=== PATIENT | female | born 1985 | race Hispanic/Latino ===

== ENCOUNTER 2020-03-11 14:21 | Emergency (ER) | payer MEDICAID, OTHER ==
[2020-03-11] MEDS ORDERED: TETANUS/DIPHTHERIA TOXOID [ADULT] 0.5 ML VIAL IM ONE (14:36)
[2020-03-11] MEDS ORDERED: ACETAMINOPHEN EXTRA STRENGTH 500 MG TABLET ONE (14:53)
== END 2020-03-11 15:34 | disposition home or self-care (01) ==
LOC: EDH 14:21
DX: S81.831A Puncture wound without foreign body, right lower leg, initial encounter (principal); F41.9 Anxiety disorder, unspecified; W54.0XXA Bitten by dog, initial encounter; Y93.89 Activity, other specified; Y92.89 Other specified places as the place of occurrence of the external cause; Y99.8 Other external cause status
CPT/HCPCS: 90471; 90714

== ENCOUNTER 2020-07-30 14:17 | Observation (INO) | payer MEDICAID ==
[~2020-07-30] VITALS: Ht 160 cm; Wt 75.2 kg
[2020-07-30] MEDS ORDERED: ONDANSETRON HCL 4 MG/2 ML VIAL ONE (15:07)
[2020-07-30] MEDS ORDERED: KETOROLAC TROMETHAMINE 30MG/ML ONE (15:07)
[2020-07-30] MEDS ORDERED: SODIUM CHLORIDE 0.9% 1000ML 1,000 ML IV ONE (15:09)
[2020-07-30 15:13] LABS: BASOPHILS % (AUTO) 0.3 % (0.0-5.0); EOSINOPHILS % (AUTO) 0.1 % (0.0-8.0); HEMATOCRIT 40.1 % (36-48); LYMPHOCYTES % (AUTO) 4.4 % (21.0-51.0); MEAN CORPUSCULAR HEMOGLOBIN 30.7 pg (27.0-33.0); MEAN CORPUSCULAR HGB CONC 34.4 g/dL (32.0-36.0); MEAN CORPUSCULAR VOLUME 89.1 fL (79-99); MONOCYTES % (AUTO) 3.4 % (3.0-13.0); NEUTROPHILS % (AUTO) 91.4 % (40.0-77.0); PLATELET COUNT (AUTO) 317 K/uL (130-400); RED CELL DISTRIBUTION WIDTH 12.5 % (11.0-15.5); WHITE BLOOD COUNT (AUTO) 19.4 K/uL (4.8-10.8)
[2020-07-30 15:30] LABS: APPEARANCE,URINE Clear (CLEAR); BILIRUBIN,URINE Negative (NEGATIVE); COLOR,URINE Yellow (YELLOW); GLUCOSE, URINE (UA) Negative (NEGATIVE); KETONES,URINE >=160 mg/dL (NEGATIVE); LEUKOCYTE ESTERASE ,URINE Negative (NEGATIVE); NITRATE,URINE Positive (NEGATIVE); OCCULT BLOOD,URINE Moderate (NEGATIVE); PH,URINE 5.5 (5.0-8.0); PROTEIN,URINE Negative (NEGATIVE); UROBILINOGEN,URINE 0.2 mg/dL (0.2-1.0)
[2020-07-30 15:35] LABS: CREATININE 0.7 mg/dL (0.5-1.5); POTASSIUM 3.5 mmol/L (3.5-5.1)
[2020-07-30 15:37] LABS: BACTERIA,URINE Many /HPF (None Seen); RBC,URINE None Seen /HPF (0-1); SQUAMOUS EPITHELIAL CELL,UR 0-2 /HPF (0-2); WBC,URINE 0-1 /HPF (0-1)
[2020-07-30 15:40] LABS: ALBUMIN 4.2 g/dL (3.5-5.0); BILIRUBIN,TOTAL 0.5 mg/dL (0.2-1.0); TOTAL PROTEIN, SERUM 8.2 g/dL (6.0-8.3)
[2020-07-30] MEDS ORDERED: MORPHINE SULFATE 4 MG/1ML SYG ONE (16:42)
[2020-07-30] MEDS ORDERED: IOHEXOL-350 75 ML VIAL IV ONE (16:46)
[2020-07-30] MEDS ORDERED: ZOSYN 3.375GM+NS 50ML 50 ML IV ONE (18:11)
[2020-07-30] MEDS ORDERED: DIPHENHYDRAMINE HCL 25 MG CAPSULE PO PRN (20:30)
[2020-07-30] MEDS ORDERED: GUAIFENESIN-DM 200/20 MG 10 ML PO PRN (20:30)
[2020-07-30] MEDS: LACTATED RINGERS 1000ML 1,000 ML IV SCH (20:30)
[2020-07-30] MEDS ORDERED: DiphenhydrAMINE HCL 50 MG/ML VIAL IV PRN (20:30)
[2020-07-30] MEDS ORDERED: NITROGLYCERIN 0.4 MG SL TAB SL PRN (20:30)
[2020-07-30] MEDS ORDERED: ONDANSETRON HCL 4 MG/2 ML VIAL IV PRN (20:30)
[2020-07-30] MEDS ORDERED: MAG HYDROX/AL HYDROX/SIMETH ES 30 ML SUSP UDCUP PO PRN (20:30)
[2020-07-30] MEDS ORDERED: ACETAMINOPHEN 325 MG TAB PO PRN ×2 (20:30)
[2020-07-30] MEDS ORDERED: LACTULOSE 20 GM/30 ML UDCUP PO PRN (20:30)
[2020-07-30] MEDS: FAMOTIDINE/PF 20 MG/2 ML VIAL IV SCH (21:00)
[2020-07-30] MEDS: ZOSYN 3.375GM+NS 50ML 50 ML IV SCH (21:00)
[2020-07-30] MEDS ORDERED: LACTATED RINGERS 1000ML 1,000 ML IV ONE (21:17)
[2020-07-30] MEDS ORDERED: FAMOTIDINE/PF 20 MG/2 ML VIAL IV ONE (21:18)
[2020-07-30] MEDS ORDERED: MORPHINE SULFATE 2 MG/ML 1ML SYG ONE (22:58)
[2020-07-30 23:40] VITALS: BP 124/73
[2020-07-30] MEDS ORDERED: SERT-439 PO (23:45)
[2020-07-30] MEDS ORDERED: HYDR-3421 PO (23:45)
[2020-07-31] VITALS (25 sets, daily range): BP systolic 90–126; BP diastolic 49–73
[2020-07-31] MEDS ORDERED: HYDROXYZINE HCL 50 MG/ML VIAL IM PRN
[2020-07-31] MEDS ORDERED: MORPHINE SULFATE 2 MG/ML 1ML SYG ONE (04:13)
[2020-07-31] MEDS: MORPHINE SULFATE 2 MG/ML 1ML SYG IVP PRN ×4 (04:17→18:44)
[2020-07-31] MEDS: ZOSYN 3.375GM+NS 50ML 50 ML IV SCH ×3 (04:17→21:30)
[2020-07-31 05:41] LABS: BASOPHILS % (AUTO) 0.4 % (0.0-5.0); EOSINOPHILS % (AUTO) 0.1 % (0.0-8.0); HEMATOCRIT 34.5 % (36-48); LYMPHOCYTES % (AUTO) 9.6 % (21.0-51.0); MEAN CORPUSCULAR HGB CONC 34.5 g/dL (32.0-36.0); MEAN CORPUSCULAR VOLUME 89.8 fL (79-99); MONOCYTES % (AUTO) 5.3 % (3.0-13.0); NEUTROPHILS % (AUTO) 84.3 % (40.0-77.0); PLATELET COUNT (AUTO) 282 K/uL (130-400); RED BLOOD CELL COUNT(AUTO) 3.84 MIL/uL (4.00-5.50); RED CELL DISTRIBUTION WIDTH 12.8 % (11.0-15.5); WHITE BLOOD COUNT (AUTO) 14.6 K/uL (4.8-10.8)
[2020-07-31 05:56] LABS: ALBUMIN 3.1 g/dL (3.5-5.0); BILIRUBIN,TOTAL 0.7 mg/dL (0.2-1.0); CREATININE 0.7 mg/dL (0.5-1.5); CRP QUANTITATIVE 93.6 mg/L (0.00-9.0); POTASSIUM 3.5 mmol/L (3.5-5.1); TOTAL PROTEIN, SERUM 6.7 g/dL (6.0-8.3)
[2020-07-31] MEDS: LACTATED RINGERS 1000ML 1,000 ML IV SCH ×6 (06:26→21:36)
[2020-07-31] MEDS ORDERED: POTASSIUM CHLORIDE 20MEQ/100ML 100 ML IV PRN (06:45)
[2020-07-31] MEDS ORDERED: LIDOCAINE HCL-MPF 1% 2ML VIAL IV PRN (06:45)
[2020-07-31] MEDS: FAMOTIDINE/PF 20 MG/2 ML VIAL IV SCH ×2 (09:46→21:30)
[2020-07-31] MEDS ORDERED: BUPIVACAINE/PF 0.25% 30ML VIAL IJ ONE (18:45)
[2020-07-31] MEDS ORDERED: LIDOCAINE HCL 1% 20 ML VIAL ONE (18:45)
[2020-07-31] MEDS ORDERED: CEFAZOLIN SODIUM 1 GM VIAL ONE (18:45)
[2020-07-31] MEDS ORDERED: MIDAZOLAM HCL 1 MG/ML 2ML VIAL ONE ×2 (19:15→19:50)
[2020-07-31] MEDS ORDERED: MEPERIDINE-PF 25 MG/ML SYG ONE ×2 (19:15→19:59)
[2020-07-31] MEDS ORDERED: DEXAMETHASONE SOD PHOSPHATE 10MG/ML 1ML VIAL ONE (19:49)
[2020-07-31] MEDS ORDERED: LIDOCAINE PF 2% 5ML ABBOJECT ONE (19:49)
[2020-07-31] MEDS ORDERED: SUCCINYLCHOLINE CHLORIDE 20 MG/ML 10 ML VIAL ONE (19:49)
[2020-07-31] MEDS ORDERED: PROPOFOL 10 MG/ML 20ML VIAL IV ONE (19:49)
[2020-07-31] MEDS ORDERED: FENTANYL CITRATE PF 50 MCG/1 ML 2ML VIAL ONE ×2 (19:50→19:57)
[2020-07-31] MEDS ORDERED: ROCURONIUM 10MG/1ML SYR 10 MG/ML ML ONE (19:50)
[2020-07-31] MEDS ORDERED: GLYCOPYRROLATE 1 MG/5 ML SYRINGE ONE (19:50)
[2020-07-31] MEDS ORDERED: NEOSTIGMINE 5MG/5ML SYR IV ONE (19:50)
[2020-07-31] MEDS ORDERED: ONDANSETRON HCL 4 MG/2 ML VIAL ONE (19:50)
[2020-07-31] MEDS ORDERED: KETOROLAC TROMETHAMINE 30MG/ML ONE (19:57)
[2020-08-01] VITALS (8 sets, daily range): BP systolic 92–114; BP diastolic 55–69
[2020-08-01] MEDS: OXYCODONE/ACETAMIN 5/325MG TAB PO PRN ×3 (03:44→18:03)
[2020-08-01 03:45] LABS: BASOPHILS % (AUTO) 0.2 % (0.0-5.0); HEMATOCRIT 34.3 % (36-48); LYMPHOCYTES % (AUTO) 6.3 % (21.0-51.0); MEAN CORPUSCULAR HEMOGLOBIN 30.5 pg (27.0-33.0); MEAN CORPUSCULAR HGB CONC 33.8 g/dL (32.0-36.0); MEAN CORPUSCULAR VOLUME 90.3 fL (79-99); MONOCYTES % (AUTO) 1.2 % (3.0-13.0); NEUTROPHILS % (AUTO) 91.9 % (40.0-77.0); PLATELET COUNT (AUTO) 251 K/uL (130-400); RED CELL DISTRIBUTION WIDTH 12.5 % (11.0-15.5); WHITE BLOOD COUNT (AUTO) 11.1 K/uL (4.8-10.8)
[2020-08-01] MEDS: ZOSYN 3.375GM+NS 50ML 50 ML IV SCH (04:04)
[2020-08-01 04:11] LABS: ALBUMIN 2.8 g/dL (3.5-5.0); BILIRUBIN,TOTAL 0.4 mg/dL (0.2-1.0); CREATININE 0.7 mg/dL (0.5-1.5); CRP QUANTITATIVE 166.5 mg/L (0.00-9.0); POTASSIUM 4.3 mmol/L (3.5-5.1); TOTAL PROTEIN, SERUM 6.7 g/dL (6.0-8.3)
[2020-08-01] MEDS ORDERED: MEROPENEM 1 GM VIAL IVP SCH (09:30)
[2020-08-01] MEDS: LACTATED RINGERS 1000ML 1,000 ML IV SCH (10:00)
[2020-08-01] MEDS: FAMOTIDINE 20MG TAB 20 MG TAB PO SCH ×2 (10:00→21:22)
[2020-08-02] VITALS: BP 113/55
[2020-08-02 04:00] VITALS: BP 98/57
[2020-08-02] MEDS: OXYCODONE/ACETAMIN 5/325MG TAB PO PRN ×2 (04:08→10:33)
[2020-08-02 04:41] LABS: BASOPHILS % (AUTO) 0.8 % (0.0-5.0); EOSINOPHILS % (AUTO) 0.6 % (0.0-8.0); HEMATOCRIT 30.1 % (36-48); MEAN CORPUSCULAR HEMOGLOBIN 30.1 pg (27.0-33.0); MEAN CORPUSCULAR HGB CONC 33.2 g/dL (32.0-36.0); MEAN CORPUSCULAR VOLUME 90.7 fL (79-99); MONOCYTES % (AUTO) 5.4 % (3.0-13.0); NEUTROPHILS % (AUTO) 57.9 % (40.0-77.0); PLATELET COUNT (AUTO) 236 K/uL (130-400); RED BLOOD CELL COUNT(AUTO) 3.32 MIL/uL (4.00-5.50); RED CELL DISTRIBUTION WIDTH 12.7 % (11.0-15.5)
[2020-08-02 05:08] LABS: ALBUMIN 2.5 g/dL (3.5-5.0); BILIRUBIN,TOTAL 0.3 mg/dL (0.2-1.0); CREATININE 0.7 mg/dL (0.5-1.5); CRP QUANTITATIVE 52.8 mg/L (0.00-9.0); POTASSIUM 3.4 mmol/L (3.5-5.1); TOTAL PROTEIN, SERUM 5.9 g/dL (6.0-8.3)
[2020-08-02] MEDS ORDERED: POTASSIUM CHLORIDE 10% ELIXIR 20 MEQ/15 ML UDCUP PO PRN (08:15)
[2020-08-02] MEDS ORDERED: POTASSIUM CHLORIDE 20MEQ/100ML 100 ML IV PRN (08:15)
[2020-08-02] MEDS ORDERED: LIDOCAINE HCL-MPF 1% 2ML VIAL IV PRN (08:15)
[2020-08-02] MEDS ORDERED: POTASSIUM CHLORIDE 20 MEQ ERTAB PO PRN (08:15)
[2020-08-02] MEDS: FAMOTIDINE 20MG TAB 20 MG TAB PO SCH (08:31)
[2020-08-02] MEDS ORDERED: LEVOFLOXACIN 750 MG TABLET PO SCH (09:00)
[2020-08-02] MEDS ORDERED: LEVO750T46 PO (09:09)
[2020-08-02 09:20] VITALS: BP 107/69
[2020-08-02 13:54] VITALS: BP 113/77
== END 2020-08-02 14:20 | disposition home or self-care (01) ==
LOC: EDH 14:17 → INTOOBSV 14:18 → EDHIP 14:18 → 3CH 21:57
PROVIDERS: ADMIT Family Medicine; ATTEND Family Medicine
DX: K35.80 Unspecified acute appendicitis (principal); Z20.822 Contact with and (suspected) exposure to COVID-19; F41.9 Anxiety disorder, unspecified; N39.0 Urinary tract infection, site not specified; B96.20 Unspecified Escherichia coli [E. coli] as the cause of diseases classified elsewhere; D72.829 Elevated white blood cell count, unspecified; Z98.51 Tubal ligation status; Z90.49 Acquired absence of other specified parts of digestive tract; Z79.899 Other long term (current) drug therapy
CPT/HCPCS: 36415 ×4; 44970; 74177; 80053 ×4; 81001; 81025; 85025 ×4; 86140 ×3; 87040 ×2; 87077; 87088; 87186; 87426; 88304; 96361 ×3; 96365; 96366 ×2; 96375 ×2; 96376; 99285; A4344; A4452; A4649 ×6; A4930; C1769 ×3; G0378 ×64; J0330; J1100; J1885 ×2; J2001; J2175 ×2; J2185; J2250 ×2; J2270; J2405 ×3; J2543 ×5; J2704; J2710; J3010 ×2; J3480; J3490 ×5; J7030 ×2; J7120 ×5; Q9967; U0003; J0690

== ENCOUNTER 2023-05-22 09:48 | Emergency (ER) | payer MEDICAID ==
[~2023-05-22] VITALS: Ht 157.5 cm; Wt 68.0 kg
[~2023-05-22 09:48] MED LIST: HYDR-3421 PO; LEVO750T68 PO; SERT-439 PO
[2023-05-22] MEDS ORDERED: ONDANSETRON 4MG INJ IVP ONE (11:00)
[2023-05-22] MEDS ORDERED: MORPHINE 2 MG SYG IVP ONE (11:00)
[2023-05-22] MEDS ORDERED: LACTATED RINGERS 1000ML IV SCH (11:00)
[2023-05-22 11:02] LABS: BASOPHILS # (AUTO) 0.07 K/uL (0.00-0.20); BASOPHILS % (AUTO) 1.3 % (0.0-5.0); EOSINOPHILS # (AUTO) 0.15 K/uL (0.00-0.70); EOSINOPHILS % (AUTO) 2.8 % (0.0-8.0); HEMATOCRIT 38.4 % (36-48); IMMATURE GRANULOCYTE ABSOLUTE 0.01 K/uL (0-1); LYMPHOCYTES # (AUTO) 1.9 K/uL (1.0-4.8); LYMPHOCYTES % (AUTO) 35.1 % (21.0-51.0); MEAN CORPUSCULAR HEMOGLOBIN 31.8 pg (27.0-33.0); MEAN CORPUSCULAR HGB CONC 34.9 g/dL (32.0-36.0); MONOCYTES # (AUTO) 0.4 K/uL (0.1-1.0); MONOCYTES % (AUTO) 6.5 % (3.0-13.0); NEUTROPHILS # (AUTO) 2.9 K/uL (1.8-7.7); NEUTROPHILS % (AUTO) 54.1 % (40.0-77.0); PLATELET COUNT (AUTO) 266 K/uL (130-400); RED BLOOD CELL COUNT(AUTO) 4.22 MIL/uL (4.00-5.50); RED CELL DISTRIBUTION WIDTH 12.4 % (11.0-15.5); WHITE BLOOD COUNT (AUTO) 5.4 K/uL (4.8-10.8)
[2023-05-22 11:15] LABS: APPEARANCE,URINE CLEAR (CLEAR); BILIRUBIN,URINE NEGATIVE (NEGATIVE); GLUCOSE, URINE (UA) NEGATIVE (NEGATIVE); KETONES,URINE NEGATIVE (NEGATIVE); LEUKOCYTE ESTERASE ,URINE NEGATIVE Leu/uL (NEGATIVE); NITRATE,URINE NEGATIVE (NEGATIVE); OCCULT BLOOD,URINE NEGATIVE (NEGATIVE); PH,URINE 7.5 (5.0-8.0); PROTEIN,URINE NEGATIVE (NEGATIVE); UROBILINOGEN,URINE 0.2 mg/dL (0.2-1.0)
[2023-05-22 11:17] LABS: HCG,QUALITATIVE URINE NEGATIVE (NEGATIVE)
[2023-05-22 11:21] LABS: ADD UA MICROSCOPIC NO; COLOR,URINE LIGHT-YELLOW (YELLOW)
[2023-05-22 11:33] LABS: CREATININE 0.6 mg/dL (0.5-1.5); POTASSIUM 3.3 mmol/L (3.5-5.1)
[2023-05-22 11:37] LABS: ALBUMIN 3.6 g/dL (3.5-5.0); BILIRUBIN,TOTAL 0.3 mg/dL (0.2-1.0); TOTAL PROTEIN, SERUM 7.3 g/dL (6.0-8.3)
[2023-05-22] MEDS ORDERED: IOHEXOL-350 75 ML VIAL IV ONE (11:56)
[2023-05-22 13:27] VITALS: BP 119/70; PULSE 82; RESP 17; O2SAT 99
== END 2023-05-22 14:00 | disposition home or self-care (01) ==
LOC: EDH 09:48
DX: K92.1 Melena (principal); R10.32 Left lower quadrant pain; Z79.899 Other long term (current) drug therapy; Z90.49 Acquired absence of other specified parts of digestive tract; Z98.890 Other specified postprocedural states
CPT/HCPCS: 99285; 74177; 96374; 96361; 96375; 82270; 80053; 85025; 81003; 81025; 36415; J7120; J2270; J2405; Q9967